=== PATIENT | female | born 1985 | race Caucasian/White ===

== ENCOUNTER 2017-09-05 08:38 | Inpatient (IN) | payer BC ==
[2017-09-05] MEDS ORDERED: Penicillin G Potassium IV* 5,000,000 UNITS in NS 0.9% 100 ML* 100 ML IVPB ONE (09:09)
[2017-09-05] MEDS ORDERED: Oxytocin in LR* 20 UNITS/1,000 ML BAG IVPB SCH ×2 (10:00→17:00)
[2017-09-05 10:11] LABS: ABS Basophils 0.1 10^3/ul (0-0.2); ABS Eosinophils 0.2 10^3/ul (0-0.6); ABS Monocytes 0.8 10^3/ul (0-0.8); ABS Nucleated RBC 0.02 10^3/ul; Eosinophil % 2.4 % (0-6); Hematocrit 32 % (35-47); Hemoglobin 10.8 g/dl (12.0-16.0); Lymphocyte % 20.1 % (25-47); Mean Corpuscular HGB Conc 34 g/dl (31-36); Mean Corpuscular Hemoglobin 27 pg (27-31); Mean Corpuscular Volume 81 fL (80-97); Mean Platelet Volume 8 um3 (7.4-10.4); Nucleated Red Blood Cells % 0.2; Platelet Count 253 10^3/ul (150-450); Red Blood Count 3.98 10^6/ul (4.0-5.4); Red Cell Distribution Width 15 % (10.5-15); White Blood Count 10.1 10^3/ul (3.5-10.8)
[2017-09-05] MEDS ORDERED: OBEPIDURAL* 250 ML EPIDURAL ONE (13:10)
[2017-09-05] MEDS ORDERED: fentaNYL* 50 MCG/ML 2 ML VIAL (100 MCG VIAL) ONE (13:11)
[2017-09-05] MEDS ORDERED: Penicillin G Potassium IV* 2,500,000 UNITS in NS 0.9% 100 ML* 100 ML IVPB SCH (13:30)
[2017-09-05] MEDS ORDERED: Phenylephrine IV* 40 MCG/ML 10 ML SYRINGE IV PUSH PRN ×2 (13:54)
[2017-09-05] MEDS ORDERED: Famotidine TAB* 20 MG PO PRN (13:54)
[2017-09-05] MEDS ORDERED: Sodium Citrate/Citric Acid* 15 ML UDC PO PRN (13:54)
[2017-09-05] MEDS ORDERED: Dibucaine 1% 28.35 GM TUBE ONE (15:47)
[2017-09-05] MEDS ORDERED: Witch Hazel PAD* JAR ONE (15:47)
[2017-09-05] MEDS ORDERED: Glycerin ADULT SUPP PR PRN (16:44)
[2017-09-05] MEDS ORDERED: Witch Hazel PAD* JAR TOPICAL PRN (16:44)
[2017-09-05] MEDS ORDERED: Dibucaine 1% 28.35 GM TUBE PR PRN (16:44)
[2017-09-05] MEDS ORDERED: Albuterol HFA INHALER* 8 gm MDI INH PRN (16:46)
[2017-09-05] MEDS ORDERED: RHO D Immune Globulin (HUMAN)* 300 MCG = 1,500 I.U. INJ IM ONE (16:48)
[2017-09-05] MEDS: ceFAZolin 2 GM PREMIX (*) 2 GM/50 ML BAG IVPB SCH (17:14)
[2017-09-05] MEDS: Docusate CAP* 100 MG PO SCH (19:48)
[2017-09-05] MEDS: Ibuprofen TAB* 600 MG PO PRN (19:48)
[2017-09-06] MEDS: ceFAZolin 2 GM PREMIX (*) 2 GM/50 ML BAG IVPB SCH (01:30)
[2017-09-06] MEDS: Ibuprofen TAB* 600 MG PO PRN ×4 (01:57→21:00)
[2017-09-06] MEDS: OBEPIDURAL* 250 ML EPIDURAL SCH ×2 (07:58→17:07)
[2017-09-06] MEDS: Simethicone TAB* 80 MG TAB.CHEW PO SCH ×4 (07:58→17:33)
[2017-09-06] MEDS: Docusate CAP* 100 MG PO SCH ×3 (07:59→20:55)
[2017-09-06] MEDS: Montelukast Sodium TAB* 5 MG PO SCH (07:59)
[2017-09-06] MEDS: Prenatal Vitamin TAB PO SCH (08:50)
[2017-09-06] MEDS ORDERED: Ferrous Gluconate TAB* 324 MG TAB PO SCH (09:00)
[2017-09-06 09:13] LABS: ABS Basophils 0.1 10^3/ul (0-0.2); ABS Eosinophils 0.2 10^3/ul (0-0.6); ABS Lymphocytes 1.9 10^3/ul (1.0-4.8); ABS Monocytes 0.7 10^3/ul (0-0.8); ABS Neutrophils 8.6 10^3/ul (1.5-7.7); ABS Nucleated RBC 0 10^3/ul; Eosinophil % 1.9 % (0-6); Hematocrit 31 % (35-47); Hemoglobin 10.4 g/dl (12.0-16.0); Lymphocyte % 16.6 % (25-47); Mean Corpuscular HGB Conc 33 g/dl (31-36); Mean Corpuscular Hemoglobin 27 pg (27-31); Mean Corpuscular Volume 81 fL (80-97); Mean Platelet Volume 8 um3 (7.4-10.4); Nucleated Red Blood Cells % 0; Platelet Count 245 10^3/ul (150-450); Red Blood Count 3.87 10^6/ul (4.0-5.4); Red Cell Distribution Width 15 % (10.5-15); White Blood Count 11.5 10^3/ul (3.5-10.8)
[2017-09-06] MEDS ORDERED: Pneumococcal *Vac Polyvalent 0.5 ML VIAL IM ONE (12:00)
[2017-09-06] MEDS: Acetaminophen TAB* 325 MG PO PRN ×2 (12:55→17:28)
[2017-09-06] MEDS: LevoCETirizine TAB (NF) 5 MG TAB PO SCH (12:58)
[2017-09-06] MEDS ORDERED: Ondansetron ODT TAB* 4 MG ONE (17:26)
[2017-09-06] MEDS ORDERED: Ondansetron TAB* 4 MG PO ONE (18:00)
[2017-09-07 08:13] VITALS: BP 131/72
[2017-09-07] MEDS: Ibuprofen TAB* 600 MG PO PRN ×2 (09:17→13:55)
[2017-09-07] MEDS: Docusate CAP* 100 MG PO SCH ×2 (09:17→13:55)
[2017-09-07] MEDS: LevoCETirizine TAB (NF) 5 MG TAB PO SCH (09:18)
[2017-09-07] MEDS: Montelukast Sodium TAB* 5 MG PO SCH (09:18)
[2017-09-07] MEDS: Prenatal Vitamin TAB PO SCH (09:18)
== END 2017-09-07 14:39 | disposition home or self-care (01) | DRG 541 ==
LOC: MCHOBOUT 08:38 → MCHOB 09:09
PROVIDERS: ADMIT Obstetrics & Gynecology; ATTEND Obstetrics & Gynecology
PROC: 10907ZC Drainage of Amniotic Fluid, Therapeutic from Products of Conception, Via Natural or Artificial Opening (ICD-10-PCS; principal; 2017-09-05)
PROC: 3E033VJ Introduction of Other Hormone into Peripheral Vein, Percutaneous Approach (ICD-10-PCS; 2017-09-05)
PROC: 10E0XZZ Delivery of Products of Conception, External Approach (ICD-10-PCS; 2017-09-05)
PROC: 4A1HXCZ Monitoring of Products of Conception, Cardiac Rate, External Approach (ICD-10-PCS; 2017-09-05)
PROC: 10D17Z9 Manual Extraction of Products of Conception, Retained, Via Natural or Artificial Opening (ICD-10-PCS; 2017-09-05)
PROC: 0HQ9XZZ Repair Perineum Skin, External Approach (ICD-10-PCS; 2017-09-05)
DX: O99.52 Diseases of the respiratory system complicating childbirth (principal); J45.909 Unspecified asthma, uncomplicated; O99.824 Streptococcus B carrier state complicating childbirth; Z3A.39 39 weeks gestation of pregnancy; Z37.0 Single live birth; Z67.41 Type O blood, Rh negative; Z88.1 Allergy status to other antibiotic agents; O66.0 Obstructed labor due to shoulder dystocia; O73.0 Retained placenta without hemorrhage; O70.0 First degree perineal laceration during delivery
CPT/HCPCS: 36415; 85025; 85461; 86850; 86900; 86901; 88307; 90732; A9270-GY; J0690; J2540; J2790; J3010